=== PATIENT | female | born 1990 | race Two or more races ===

== ENCOUNTER 2021-01-04 16:30 | Inpatient (IN) | payer OTHER ==
[~2021-01-04 16:30] MED LIST: ZOLPIDEM TARTRATE 5 MG TABLET PO ONE
[2021-01-04] MEDS ORDERED: BETAMET ACET/BETAMET NA PH 30 MG/5 ML VIAL IM SCH (17:15)
[2021-01-04] MEDS: DEXTROSE 5%-LACTATED RINGERS 1,000 ML IV SCH (17:15)
[2021-01-04] MEDS ORDERED: AMPICILLIN - 2 GM in SODIUM CHLORIDE 100 ML IVPB ONE (17:20)
[2021-01-04 17:54] VITALS: BMI 40.0
[2021-01-04 17:54] LABS: BASO % 0.4 % (0-2.0); HEMATOCRIT 33.4 % (32.4-45.2); LYMPH % 16.5 % (8-40); MCH 26.6 pg (25.7-33.7); MCHC 32.8 g/dl (32.0-36.0); MEAN CELL VOLUME 81.1 fl (80-96); MONO % 5.4 % (3.8-10.2); NEUT % 76.7 % (42.8-82.8); PLATELET COUNT 262 K/MM3 (134-434); RBC 4.12 M/mm3 (3.60-5.2); RDW 13.9 % (11.6-15.6); WHITE BLOOD COUNT 12.1 K/mm3 (4.0-10.0)
[2021-01-04 18:01] LABS: INR 0.95 (0.83-1.09); PROTHROMBIN TIME (PATIENT) 11.7 SEC (9.7-13.0)
[2021-01-04 18:03] LABS: ACTIVATED PTT 29.8 SECONDS (25.2-36.5)
[2021-01-04 18:13] LABS: CALCIUM 8.1 mg/dL (8.5-10.1)
[2021-01-04 18:15] LABS: BLOOD UREA NITROGEN 12.8 mg/dL (7-18)
[2021-01-04 18:18] LABS: CREATININE 0.5 mg/dL (0.55-1.3)
[2021-01-04 19:11] LABS: HIV INTERPRETATION NEGATIVE (NEGATIVE)
[2021-01-04] MEDS ORDERED: AMPICILLIN SODIUM 1 GM VIAL ONE (21:22)
[2021-01-04] MEDS: AMPICILLIN - 1 GM in SODIUM CHLORIDE 100 ML IVPB SCH (21:25)
[2021-01-05] MEDS: AMPICILLIN - 1 GM in SODIUM CHLORIDE 100 ML IVPB SCH ×3 (01:20→15:52)
[2021-01-05] MEDS ORDERED: AMPICILLIN SODIUM 1 GM VIAL ONE ×2 (01:20→05:18)
[2021-01-05] MEDS: DEXTROSE 5%-LACTATED RINGERS 1,000 ML IV SCH (02:05)
[2021-01-05] MEDS ORDERED: BUTORPHANOL TARTRATE 1 MG/ML VIAL IVPB ONE (04:37)
[2021-01-05] MEDS ORDERED: PROMETHAZINE HCL 25 MG/1 ML VIAL IVPB ONE (04:37)
[2021-01-05] MEDS ORDERED: BUTORPHANOL TARTRATE 2 MG/ML VIAL ONE (04:43)
[2021-01-05] MEDS ORDERED: PROMETHAZINE HCL 25 MG/1 ML VIAL ONE (04:44)
[2021-01-05] MEDS ORDERED: OXYTOCIN 20 UNITS in 0.9% NS 20 UNIT/1,000 ML INFUS.BAG IV ONE ×2 (06:22→06:25)
[2021-01-05] MEDS ORDERED: LIDOCAINE HCL 1% PRESERVATIVE FREE - 30ML VIAL ONE (06:22)
[2021-01-05] MEDS ORDERED: IBUPROFEN 600 MG TABLET (FP) PO ONE (07:15)
[2021-01-05] MEDS ORDERED: ACETAMINOPHEN 325 MG TABLET (FP) ONE (07:15)
[2021-01-05] MEDS: IBUPROFEN 600 MG TABLET (FP) PO PRN (07:20)
[2021-01-05] MEDS: ACETAMINOPHEN 325 MG TABLET (FP) PO PRN (07:20)
[2021-01-05] MEDS ORDERED: BENZOCAINE 20% 57 GM BOTTLE TP PRN (07:28)
[2021-01-05] MEDS ORDERED: WITCH HAZEL 50% (TUCKS) 40 PAD/JAR PAD TP PRN (07:28)
[2021-01-05] MEDS ORDERED: BISACODYL 10 MG SUPP.RECT RC PRN (07:28)
[2021-01-05] MEDS ORDERED: BENZOCAINE 28 GM HEMORRHOIDAL OINTMENT TP PRN (07:28)
[2021-01-05] MEDS ORDERED: METHYLERGONOVINE MALEATE 0.2 MG/1 ML AMP IM PRN (07:28)
[2021-01-05] MEDS ORDERED: OXYTOCIN 20 UNITS in 0.9% NS 20 UNIT/1,000 ML INFUS.BAG IV SCH (07:30)
[2021-01-05] MEDS: PRENATAL VITAMINS W/ FOLIC ACID TABLET (FP) PO SCH (10:02)
[2021-01-05 10:05] LABS: POC NITRAZINE POS
[2021-01-06] MEDS: IBUPROFEN 600 MG TABLET (FP) PO PRN ×2 (00:55→22:01)
[2021-01-06] MEDS: ACETAMINOPHEN 325 MG TABLET (FP) PO PRN ×2 (00:56→22:01)
[2021-01-06 08:16] LABS: BASO % 0.2 % (0-2.0); EOS % 0.9 % (0-4.5); HEMATOCRIT 29.1 % (32.4-45.2); HEMOGLOBIN 9.7 GM/dL (10.7-15.3); LYMPH % 21.5 % (8-40); MCH 27.4 pg (25.7-33.7); MCHC 33.3 g/dl (32.0-36.0); MEAN CELL VOLUME 82.2 fl (80-96); MEAN PLT VOLUME 8.3 fl (7.5-11.1); MONO % 6.2 % (3.8-10.2); NEUT % 71.2 % (42.8-82.8); PLATELET COUNT 244 K/MM3 (134-434); RBC 3.55 M/mm3 (3.60-5.2); RDW 14.1 % (11.6-15.6); WHITE BLOOD COUNT 13.4 K/mm3 (4.0-10.0)
[2021-01-06] MEDS: PRENATAL VITAMINS W/ FOLIC ACID TABLET (FP) PO SCH (09:48)
[2021-01-06] MEDS ORDERED: SENNOSIDES/DOCUSATE COMBO (SENNA PLUS) TABLET (UD) PO PRN (22:00)
[2021-01-07] MEDS: PRENATAL VITAMINS W/ FOLIC ACID TABLET (FP) PO SCH (09:31)
[2021-01-07] MEDS: IBUPROFEN 600 MG TABLET (FP) PO PRN (09:31)
[2021-01-07] MEDS: ACETAMINOPHEN 325 MG TABLET (FP) PO PRN (09:31)
[2021-01-07 09:44] VITALS: BP 128/66; PULSE 73; TEMP 97.5
== END 2021-01-07 02:40 | disposition home or self-care (01) | DRG 807 ==
LOC: JLDR 16:30 → J3W 01-05 08:07
PROVIDERS: ADMIT Specialist; ATTEND Specialist
PROC: 10E0XZZ Delivery of Products of Conception, External Approach (ICD-10-PCS; principal; 2021-01-05)
DX: O42.913 Preterm premature rupture of membranes, unspecified as to length of time between rupture and onset of labor, third trimester (principal); Z37.0 Single live birth; Z3A.35 35 weeks gestation of pregnancy
CPT/HCPCS: 36415; 59409; 80048; 83986-QW; 85025; 85610; 85730; 86780; 86850; 86900; 86901; 87389; 96372; C9803; U0003; U0005

== ENCOUNTER 2022-06-12 11:00 | Inpatient (IN) | payer OTHER ==
[2022-06-12] MEDS ORDERED: OXYTOCIN 30 UNITS in 0.9% NS 30 UNIT/500 ML INFUS.BAG IVPB ONE ×2 (12:09→16:41)
[2022-06-12 13:29] LABS: BASO % 0.4 % (0-2.0); EOS % 1.2 % (0-4.5); HEMATOCRIT 31.6 % (32.4-45.2); LYMPH % 17.4 % (8-40); MCH 23.3 pg (25.7-33.7); MCHC 31.5 g/dl (32.0-36.0); MEAN PLT VOLUME 7.8 fl (7.5-11.1); MONO % 5.4 % (3.8-10.2); NEUT % 75.6 % (42.8-82.8); PLATELET COUNT 315 10^3/uL (134-434); RBC 4.28 M/mm3 (3.60-5.2); RDW 16.6 % (11.6-15.6); WHITE BLOOD COUNT 12.6 K/mm3 (4.0-10.0)
[2022-06-12 13:38] LABS: INR 0.98 (0.83-1.09); PROTHROMBIN TIME (PATIENT) 11.3 SEC (9.7-13.0)
[2022-06-12 13:54] LABS: CALCIUM 8.1 mg/dL (8.5-10.1)
[2022-06-12 13:55] LABS: BLOOD UREA NITROGEN 8.7 mg/dL (7-18)
[2022-06-12 13:58] LABS: CREATININE 0.5 mg/dL (0.55-1.3)
[2022-06-12] MEDS ORDERED: BUTORPHANOL TARTRATE 1 MG/ML VIAL IVPB ONE (14:35)
[2022-06-12] MEDS ORDERED: PROMETHAZINE HCL 25 MG/1 ML VIAL IVPUSH ONE (14:35)
[2022-06-12] MEDS ORDERED: OXYTOCIN 30 UNITS in 0.9% NS 30 UNIT/500 ML INFUS.BAG IVPB SCH (14:45)
[2022-06-12] MEDS ORDERED: ELECTROLYTE-148 SOLN 1,000 ML IV SCH (14:45)
[2022-06-12 14:49] LABS: HIV INTERPRETATION NEGATIVE (NEGATIVE)
[2022-06-12] MEDS ORDERED: BUTORPHANOL TARTRATE 2 MG/ML VIAL ONE (14:55)
[2022-06-12] MEDS ORDERED: OXYTOCIN 20 UNITS in 0.9% NS 20 UNIT/1,000 ML INFUS.BAG IV ONE ×2 (14:55→17:18)
[2022-06-12] MEDS ORDERED: PROMETHAZINE HCL 25 MG/1 ML VIAL ONE (14:55)
[2022-06-12 15:11] VITALS: BMI 43.9
[2022-06-12] MEDS ORDERED: BISACODYL 10 MG SUPP.RECT RC PRN (15:56)
[2022-06-12] MEDS ORDERED: ACETAMINOPHEN 325 MG TABLET (FP) PO PRN (15:56)
[2022-06-12] MEDS ORDERED: BENZOCAINE 28 GM HEMORRHOIDAL OINTMENT TP PRN (15:56)
[2022-06-12] MEDS ORDERED: METHYLERGONOVINE MALEATE 0.2 MG/1 ML AMP IM PRN (15:56)
[2022-06-12] MEDS ORDERED: WITCH HAZEL 50% (TUCKS) 40 PAD/JAR PAD TP PRN (15:56)
[2022-06-12] MEDS ORDERED: BENZOCAINE 20% 57 GM BOTTLE TP PRN (15:56)
[2022-06-12] MEDS ORDERED: oxyCODONE HCL 5 MG TABLET PO PRN (15:56)
[2022-06-12] MEDS ORDERED: OXYTOCIN 20 UNITS in 0.9% NS 20 UNIT/1,000 ML INFUS.BAG IV SCH (16:00)
[2022-06-12] MEDS: IBUPROFEN 600 MG TABLET (FP) PO PRN (20:12)
[2022-06-13 09:20] LABS: BASO % 0.5 % (0-2.0); EOS % 1.3 % (0-4.5); HEMATOCRIT 31.1 % (32.4-45.2); HEMOGLOBIN 9.6 GM/dL (10.7-15.3); LYMPH % 20.2 % (8-40); MCH 23.3 pg (25.7-33.7); MEAN CELL VOLUME 75.2 fl (80-96); MEAN PLT VOLUME 8.1 fl (7.5-11.1); MONO % 5.4 % (3.8-10.2); NEUT % 72.6 % (42.8-82.8); PLATELET COUNT 261 10^3/uL (134-434); RBC 4.13 M/mm3 (3.60-5.2); RDW 16.5 % (11.6-15.6); WHITE BLOOD COUNT 11.6 K/mm3 (4.0-10.0)
[2022-06-13] MEDS ORDERED: DIPHTH,PERTUSS(ACELL),TET 0.5 ML DISP.SYRIN IM ONE (10:00)
[2022-06-13] MEDS: PRENATAL VITAMINS W/ FOLIC ACID TABLET (FP) PO SCH (10:50)
[2022-06-13 21:09] VITALS: RESP 18
[2022-06-13] MEDS: IBUPROFEN 600 MG TABLET (FP) PO PRN (21:58)
[2022-06-13] MEDS ORDERED: SENNOSIDES/DOCUSATE COMBO (SENNA PLUS) TABLET (UD) PO PRN (22:00)
[2022-06-14 08:10] VITALS: BP 122/78; PULSE 80; TEMP 97.9
[2022-06-14] MEDS: PRENATAL VITAMINS W/ FOLIC ACID TABLET (FP) PO SCH (09:31)
== END 2022-06-14 16:24 | disposition home or self-care (01) | DRG 806 ==
LOC: JLDR 11:00 → J3W 17:50
PROVIDERS: ADMIT Obstetrics & Gynecology; ATTEND Obstetrics & Gynecology
PROC: 10E0XZZ Delivery of Products of Conception, External Approach (ICD-10-PCS; principal; 2022-06-12)
PROC: 3E033VJ Introduction of Other Hormone into Peripheral Vein, Percutaneous Approach (ICD-10-PCS; 2022-06-12)
PROC: 10907ZC Drainage of Amniotic Fluid, Therapeutic from Products of Conception, Via Natural or Artificial Opening (ICD-10-PCS; 2022-06-12)
DX: O48.0 Post-term pregnancy (principal); O41.03X0 Oligohydramnios, third trimester, not applicable or unspecified; Z37.0 Single live birth; Z3A.40 40 weeks gestation of pregnancy
CPT/HCPCS: 36415; 59409; 80048; 85025; 85610; 85730; 86780; 86850; 86900; 86901; 87389; 90715; C9803-CS; U0003; U0005

== ENCOUNTER 2024-06-11 01:01 | Emergency (ER) | payer OTHER ==
[2024-06-11 01:06] VITALS: BP 116/72; PULSE 62; RESP 19; TEMP 97.8; BMI 35.2
[2024-06-11] MEDS ORDERED: KETOROLAC TROMETHAMINE 30 MG/1 ML VIAL ONE (01:59)
[2024-06-11] MEDS ORDERED: ACETAMINOPHEN 325 MG TABLET (FP) ONE (01:59)
[2024-06-11] MEDS: ACETAMINOPHEN 500 MG TABLET (FP) PO ONE (02:16)
[2024-06-11] MEDS: KETOROLAC TROMETHAMINE 30 MG/1 ML VIAL IM ONE (02:16)
== END 2024-06-11 03:10 | disposition home or self-care (01) ==
LOC: JER 01:01
PROC: 3E0233Z Introduction of Anti-inflammatory into Muscle, Percutaneous Approach (ICD-10-PCS; principal; 2024-06-11)
DX: M25.562 Pain in left knee (principal); M54.9 Dorsalgia, unspecified; V49.40XA Driver injured in collision with unspecified motor vehicles in traffic accident, initial encounter; Y92.410 Unspecified street and highway as the place of occurrence of the external cause
CPT/HCPCS: 72070-TC-FY; 73564-TC-LT-FY; 99284-25